=== PATIENT | female | born 1980 | race Caucasian/White ===

== ENCOUNTER → 2021-09-01 | Day surgery (SDC) | payer OTHER ==
[~2021-09-01] VITALS: Ht 167.6 cm; Wt 77.1 kg
[~2021-09-01] MED LIST: BENADRYL25 M1 PO; IBUPROFEN800 M1 PO; PERCOCET 5-3251 EACH PO; ZOFRAN4 M1 PO
[2021-09-01 07:04] LABS: HCG (URINE) SCREEN NEGATIVE (NEGATIVE)
== END | disposition home or self-care (01) ==
LOC: FAS 06:51
PROVIDERS: Obstetrics & Gynecology
DX: N83.8 Other noninflammatory disorders of ovary, fallopian tube and broad ligament (principal); N80.0 Endometriosis of uterus; N83.201 Unspecified ovarian cyst, right side; N92.0 Excessive and frequent menstruation with regular cycle; G43.709 Chronic migraine without aura, not intractable, without status migrainosus; Z88.8 Allergy status to other drugs, medicaments and biological substances; F17.200 Nicotine dependence, unspecified, uncomplicated; F17.210 Nicotine dependence, cigarettes, uncomplicated; Z20.822 Contact with and (suspected) exposure to COVID-19
CPT/HCPCS: 84703; J1100; J1170; J1885; J2250; J2405; J2704; J3010; J7120